=== PATIENT | male | born 1960 | race Caucasian/White ===

== ENCOUNTER 2018-12-09 10:38 | Day surgery (SDC) | payer BC ==
--- NOTE | 2018-12-03 14:37 | HP ---
PREOPERATIVE HISTORY AND PHYSICAL: DATE OF SURGERY/ADMISSION: 12/09/18 [facility] DATE OF OFFICE VISIT/ENCOUNTER: 12/01/18 ATTENDING SURGEON: Taylor Cullen MD * (DICTATED BY GABBIE HENRIQUEZ) PROCEDURE: Medial release, left elbow. 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 He has failed conservative measurements including cortisone injections and physical therapy. He would like to proceed with more definitive treatment at this time and has consented to proceed with surgery for this problem. PAST MEDICAL HISTORY: Unremarkable. PAST SURGICAL HISTORY: 1. Left ankle surgery. 2. Right leg compound fracture which required 4 surgeries. 3. 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 4. Hernia repair. CURRENT MEDICATION: Zestril 10 mg daily. ALLERGIES: No known drug allergies. FAMILY MEDICAL HISTORY: Noncontributory. 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 He is a former smoker. He classifies himself as a former social smoker up to half a pack per week. He quit smoking 10 years ago. He denies recreational drug use. He drinks alcohol on occasion. REVIEW OF SYSTEMS: Negative for general, cephalic, cardiovascular, respiratory , GI, , other musculoskeletal, integumentary, endocrine, neurologic, and hematologic symptoms. Infectious Disease: Negative for MRSA, hepatitis C, HIV. PHYSICAL EXAMINATION GENERAL: Well-developed, well-nourished 58-year-old male, in no acute distress. VITAL SIGNS: Height 5 feet 8 inches, weight 195 pounds. Pulse rate 70, blood pressure 126/76. HEENT: Normocephalic, atraumatic. Pupils are equal, round, and reactive to light and accommodation. Extraocular movements are intact. Throat is clear. NECK: Supple. No palpable lymph nodes. CARDIOVASCULAR: Regular rate and rhythm. S1 and S2. No murmurs, rubs, or gallops. No edema. ABDOMEN: Positive bowel sounds. Soft and nontender. NEUROLOGICAL: Alert and oriented x3. Cranial nerves II through XII are intact. Sensation is intact to light touch. MUSCULOSKELETAL: On exam of his left elbow, there is no visible swelling, but there is exquisite tenderness to palpation at the medial epicondyle. He has increased pain with wrist flexion and pronation against resistance. Neurovascular function is intact. SKIN: Intact. IMPRESSION: Medial epicondylitis, left elbow. PLAN: The patient is scheduled to undergo medial release left elbow with Dr. Cullen on 12/09/18. He will return to the office 10 days postop for followup and suture removal. Prescription for [place] was e-scribed to the patient's pharmacy for postoperative pain management. GABBIE HENRIQUEZ [id number]/CPS #: [id number]
[~2018-12-09 10:38] MED LIST: Buffered Lidocaine 1% SYRIN* 1 ML/SYRINGE INTRADERM ONE; Dexamethasone IV* 4 MG/ML 1 ML (4 MG) IV SLOW PU ONE; Famotidine IV* 10 MG/ML 2 ML (20 mg) IV ONE; Lactated Ringers 1000 ML Bag* 1,000 ML IV SCH
[2018-12-09] MEDS ORDERED: Famotidine IV* 10 MG/ML 2 ML (20 mg) ONE ×2 (11:21→11:27)
[2018-12-09] MEDS ORDERED: Dexamethasone IV* 4 MG/ML 1 ML (4 MG) ONE (11:21)
[2018-12-09] MEDS ORDERED: Ketorolac INJ* 30 MG/ML 1 ML VIAL IV PRN (11:24)
[2018-12-09] MEDS ORDERED: Naloxone* 0.4 MG/ML 1 ML VIAL IV PRN (11:24)
[2018-12-09] MEDS ORDERED: DiMENhydriNATE IV* 50 MG/ML VIAL IV PUSH PRN (11:24)
[2018-12-09] MEDS ORDERED: fentaNYL* 50 MCG/ML 2 ML VIAL (100 MCG VIAL) IV PRN (11:24)
[2018-12-09] MEDS ORDERED: oxyCODONE/Acetamin 5/325 MG* TAB PO PRN (11:24)
[2018-12-09] MEDS ORDERED: HYDROcodone/ACETAMIN 5-325 MG* 1 TAB PO PRN (11:24)
[2018-12-09] MEDS ORDERED: fentaNYL* 50 MCG/ML 2 ML VIAL (100 MCG VIAL) ONE (12:16)
[2018-12-09] MEDS ORDERED: Propofol* 10 MG/ML 20 ML BTL ONE (12:16)
[2018-12-09] MEDS ORDERED: Midazolam* 1 MG/ML 2 ML VIAL (2 MG) ONE (12:16)
[2018-12-09] MEDS ORDERED: Lidocaine 2% PF * 5 ML VIAL ONE (12:16)
[2018-12-09] MEDS ORDERED: Ondansetron INJ* 2 MG/ML VIAL ONE (12:56)
[2018-12-09] MEDS ORDERED: Ketorolac INJ* 30 MG/ML 1 ML VIAL ONE (13:37)
[2018-12-09] MEDS ORDERED: HYDROcodone/ACETAMIN 5-325 MG* 1 TAB ONE (13:43)
[2018-12-09 14:11] VITALS: BP 128/84
--- NOTE | 2018-12-09 22:23 | OP ---
DATE OF OPERATION: 12/09/18 [facility] DATE OF : 64 SURGEON: Taylor Cullen MD. BAND RIPSAW OPERATOR: GABBIE Mejia. ANESTHESIA: General. PRE-OP DIAGNOSIS: Left elbow medial epicondylitis. POST-OP DIAGNOSIS: Left elbow medial epicondylitis. OPERATIVE PROCEDURE: Left elbow medial release. ESTIMATED BLOOD LOSS: Zero. TOURNIQUET TIME: About 30 minutes. INDICATION FOR PROCEDURE: Stuart is a 58-year-old male who has a long history of medial epicondylitis on the left elbow. He has had multiple cortisone injections and he presents now for left elbow medial release. DESCRIPTION OF PROCEDURE: The patient was brought to the operating room and was given a general anesthetic and placed in the supine position on the operating table with a tourniquet around his left upper arm. The skin of his left upper extremity was prepped and draped in the usual sterile fashion. The left upper extremity was exsanguinated and the tourniquet elevated to 250 mmHg. The area of the incision was infiltrated with 10 cc of Marcaine 0.5% plain. A longitudinal incision was made on the medial aspect at the elbow centered at the medial epicondyle. We dissected through the subcutaneous tissue down to the flexor pronator origin. There was a marked amount of erythema at the proximal insertion of the tendon. A distally based U-shaped flap was created of the tendon origin and the underlying degenerated tissue was debrided and sent for pathology. The wound was copiously irrigated with saline. The tendon origin was then repaired in an interrupted fashion with #1 Vicryl suture in lengthened fashion after debriding the medial epicondyle down to bleeding bone. The wound was then irrigated with saline. Subcutaneous tissue was closed with 3-0 Vicryl and the skin with skin carlos alberto. The wound was dressed with Xeroform , 4x4, Webril, and an Tima wrap. The patient tolerated the procedure well and was brought to the recovery room in good condition. [id number]/CPS #: [id number] [id number]
== END 2018-12-09 14:09 | disposition home or self-care (01) ==
LOC: OREAST 10:38
PROVIDERS: ATTEND Orthopaedic Surgery
DX: M77.02 Medial epicondylitis, left elbow (principal); Z87.891 Personal history of nicotine dependence; I10 Essential (primary) hypertension
CPT/HCPCS: 88304; J1100; J1885; J2250; J2405; J2704; J3010